=== PATIENT | male | born 1995 | race Asian ===

== ENCOUNTER 2017-12-24 03:07 | Emergency (ER) | payer OTHER ==
[~2017-12-24] VITALS: Ht 172.7 cm; Wt 68.0 kg
[2017-12-24] MEDS ORDERED: TDAP [DIPH/PERTUSSIS/TET] 0.5 ML VIAL IM ONE (03:30)
[2017-12-24 05:22] VITALS: BP 136/86
== END 2017-12-24 05:23 ==
LOC: ER 03:11
DX: S01.111A Laceration without foreign body of right eyelid and periocular area, initial encounter (principal); Y95 Nosocomial condition; W18.39XA Other fall on same level, initial encounter; Y93.89 Activity, other specified; Y92.89 Other specified places as the place of occurrence of the external cause; Y99.8 Other external cause status
CPT/HCPCS: 70450-TC; 72125-TC; A4606; A6402; Z7610